=== PATIENT | male | born 1995 | race Asian ===

== ENCOUNTER 2017-09-11 11:56 | Observation (INO) | payer BC ==
[2017-09-11] MEDS ORDERED: ROPIVACAINE 0.5 % 30 ML VIAL (14:25)
[2017-09-11] MEDS ORDERED: FENTAnyl 50 MCG/ML VIAL ×3 (14:52→15:59)
[2017-09-11] MEDS ORDERED: LIDOCAINE 2% (SDV) 5 ML INJ (14:52)
[2017-09-11] MEDS ORDERED: MIDAZOLAM 1 MG/ML 2 ML INJ ×3 (14:52→15:18)
[2017-09-11] MEDS ORDERED: PROPOFOL 20 ML ×3 (14:52→15:18)
[2017-09-11] MEDS: POLYMYXIN/BACITRACIN 1L IRRIG (14:54)
[2017-09-11] MEDS ORDERED: ONDANSETRON 4 MG INJ ×3 (15:15→15:27)
[2017-09-11] MEDS ORDERED: FAMOTIDINE 20 MG INJ (15:15)
[2017-09-11] MEDS ORDERED: DEXAMETHASONE 4 MG/ML 1 ML INJ (15:15)
[2017-09-11] MEDS ORDERED: CEFAZOLIN 1 GM INJ ×3 (15:22→19:27)
[2017-09-11] MEDS ORDERED: METOCLOPRAMIDE 10 MG INJ (15:29)
[2017-09-11] MEDS ORDERED: HYDROmorphONE 2 MG/ML SYG (17:23)
[2017-09-11] MEDS: ROPIVACAINE 0.5 % 30 ML VIAL ×2 (20:10)
[2017-09-11] MEDS: NEOMYC/POLYMYX/BACIT 30 GM OINT (20:12)
[2017-09-11] MEDS ORDERED: ROPIVACAINE 0.2% 20 ML VIAL (20:18)
[2017-09-11] MEDS ORDERED: OXYCODONE/ACETAMINOPHEN (5/325) TAB PO ×4 (21:00)
[2017-09-11] MEDS ORDERED: HYDROmorphONE (0.2 MG/ML) 10ML SYG IV ×2 (21:00)
[2017-09-11] MEDS ORDERED: DIPHENHYDRAMINE 50 MG INJ IV (21:00)
[2017-09-11] MEDS ORDERED: ACETAMINOPHEN 1000MG/100ML IV 100 ML IVPB (21:00)
[2017-09-11] MEDS ORDERED: FENTAnyl 50 MCG/ML VIAL IV ×3 (21:00)
[2017-09-11] MEDS: KETOROLAC 30 MG INJ IV (21:15)
[2017-09-11] MEDS: ONDANSETRON 4 MG INJ IV (21:16)
[2017-09-11] MEDS: HYDROmorphONE (0.2 MG/ML) 10ML SYG IV ×2 (21:16→23:09)
[2017-09-11] MEDS: MEPERIDINE 25 MG INJ IV (21:16)
[2017-09-11] MEDS: LABETALOL HCL 20MG INJ IV (22:41)
[2017-09-12] MEDS ORDERED: hydrALAzine 20 MG INJ IV
[2017-09-12] MEDS: PROCHLORPERAZINE 10 MG INJ IV (00:41)
[2017-09-12] MEDS: morphine 2 MG INJ IV ×5 (02:13→22:30)
[2017-09-12] MEDS ORDERED: PROCHLORPERAZINE 10 MG INJ IV (03:00)
[2017-09-12] MEDS ORDERED: ALBUTEROL/IPRATROPIUM (NEB) 3 ML AMP HHN ×2 (05:00)
[2017-09-12 05:14] LABS: ADD MAN DIFF? NO
[2017-09-12 05:17] LABS: WHITE BLOOD COUNT 13.4 10^3/ul (4.8-10.8)
[2017-09-12 05:17] LABS: BASOPHILS % 0.1 % (0.0-2.0); HEMATOCRIT 36.2 % (42.0-52.0); HEMOGLOBIN 11.3 g/dl (14.0-18.0); LYMPHOCYTES # 1.1 10^3/ul (0.8-2.9); LYMPHOCYTES % 8.2 % (15.0-51.0); MEAN CORPUSCULAR HEMOGLOBIN 20.1 pg (29.0-33.0); MEAN CORPUSCULAR HGB CONC 31.2 g/dl (32.0-37.0); MEAN CORPUSCULAR VOLUME 64.5 fl (82.0-101.0); MEAN PLATELET VOLUME 8.9 fl (7.4-10.4); MONOCYTE # 0.7 10^3/ul (0.3-0.9); MONOCYTES % 5.4 % (0.0-11.0); NEUTROPHIL # 11.5 10^3/ul (1.6-7.5); NEUTROPHILS % 85.9 % (39.0-77.0); PLATELET COUNT 318 10^3/UL (140-415); RED BLOOD COUNT 5.61 10^6/ul (4.70-6.10)
[2017-09-12 05:38] LABS: ALANINE AMINOTRANSFERASE 58 IU/L (13-69); ALBUMIN 3.6 g/dl (3.3-4.9); ALBUMIN/GLOBULIN RATIO 1.33; ALKALINE PHOSPHATASE 55 IU/L (42-121); ANION GAP 12 (8-16); ASPARTATE AMINO TRANSFERASE 94 IU/L (15-46); BILIRUBIN,INDIRECT 0.4 mg/dl (0-1.1); BILIRUBIN,TOTAL 0.4 mg/dl (0.2-1.3); BLOOD UREA NITROGEN 13 mg/dl (7-20); CALCIUM 8.8 mg/dl (8.4-10.2); CARBON DIOXIDE 29 mmol/L (21-31); CHLORIDE 103 mmol/L (97-110); CREATININE 0.97 mg/dl (0.61-1.24); GLUCOSE 113 mg/dl (70-220); MAGNESIUM 1.5 mg/dl (1.7-2.5); PHOSPHORUS 4.8 mg/dl (2.5-4.9); POTASSIUM 4.4 mmol/L (3.5-5.1); SODIUM 140 mmol/L (135-144); TOTAL PROTEIN 6.3 g/dl (6.1-8.1)
[2017-09-12] MEDS: CEFAZOLIN 1 GM/50 ML (PMX) 50 ML IVPB ×2 (07:00→18:08)
[2017-09-12] MEDS: MAGNESIUM SULFATE 2 GM/50 ML 50 ML IVPB (08:50)
[2017-09-12] MEDS ORDERED: MAGNESIUM SULFATE 2 GM/50 ML 50 ML IVPB (10:30)
[2017-09-12] MEDS ORDERED: KETOROLAC 30 MG INJ IV (17:00)
[2017-09-12] MEDS ORDERED: OXYCODONE/ACETAMINOPHEN (5/325) TAB PO (17:00)
[2017-09-12] MEDS: OXYCODONE/ACETAMINOPHEN (5/325) TAB PO (18:24)
[2017-09-13] MEDS: OXYCODONE/ACETAMINOPHEN (5/325) TAB PO ×4 (01:54→14:32)
[2017-09-13] MEDS: CEFAZOLIN 1 GM/50 ML (PMX) 50 ML IVPB (05:58)
== END 2017-09-13 14:56 | disposition home or self-care (01) ==
LOC: SDS 11:56 → MS1 09-12 01:01 → SDS 11:56 → MS1 09-12 01:07
DX: R53.1 Weakness (principal); S83.512D Sprain of anterior cruciate ligament of left knee, subsequent encounter; S83.282D Other tear of lateral meniscus, current injury, left knee, subsequent encounter; X58.XXXD Exposure to other specified factors, subsequent encounter; M94.262 Chondromalacia, left knee; E66.9 Obesity, unspecified; Z68.38 Body mass index [BMI] 38.0-38.9, adult
CPT/HCPCS: 29881; 73560; 80053; 82306; 83735; 84100; 85025; 97116; 97162; 97530